=== PATIENT | female | born 1970 | race Caucasian/White ===

== ENCOUNTER 2018-09-25 21:50 | Emergency (ER) | payer MEDICAID, OTHER ==
[~2018-09-25] VITALS: Ht 172.7 cm; Wt 87.0 kg
[2018-09-25 22:02] VITALS: BP 169/87
[2018-09-25] MEDS ORDERED: dexamethasone sod phosphate 10mg/ml inj IM STA (22:04)
[2018-09-25] MEDS ORDERED: METH4TAB3 PO (22:05)
[2018-09-25] MEDS ORDERED: diphenhydrAMINE 25mg capsule PO ONE (22:05)
== END 2018-09-25 22:16 | disposition home or self-care (01) ==
LOC: ER 21:50
DX: T78.49XA Other allergy, initial encounter (principal); K08.89 Other specified disorders of teeth and supporting structures; K91.89 Other postprocedural complications and disorders of digestive system; K14.6 Glossodynia; Z91.040 Latex allergy status; X58.XXXA Exposure to other specified factors, initial encounter
CPT/HCPCS: 96372; 99283; J1100; Q0163

== ENCOUNTER 2018-09-29 14:04 | Emergency (ER) | payer MEDICAID ==
[~2018-09-29] VITALS: Ht 172.7 cm; Wt 81.8 kg
[~2018-09-29 14:04] MED LIST: METH4TAB3 PO
[2018-09-29] MEDS ORDERED: PRED10TA23 PO (15:49)
[2018-09-29 16:02] VITALS: BP 123/82
== END 2018-09-29 16:05 | disposition home or self-care (01) ==
LOC: ER 14:05
DX: R06.02 Shortness of breath (principal); R07.89 Other chest pain; K14.6 Glossodynia; Z13.89 Encounter for screening for other disorder; Z91.040 Latex allergy status; Z79.899 Other long term (current) drug therapy
CPT/HCPCS: 93005; 99283

== ENCOUNTER 2020-02-16 09:41 | Emergency (ER) | payer MEDICAID ==
[~2020-02-16] VITALS: Ht 172.7 cm; Wt 86.0 kg
[2020-02-16 10:21] LABS: BASOPHILS % (AUTO) 0.5 % (0-1); EOSINOPHILS # (AUTO) 0.1 X10'3 (0-0.9); EOSINOPHILS % (AUTO) 2.4 % (0-6); HEMATOCRIT 42.6 % (35.0-45.0); HEMOGLOBIN 14.9 g/dl (12.0-16.0); LYMPHOCYTES # (AUTO) 1.3 X10'3 (1.1-4.8); LYMPHOCYTES % (AUTO) 38.7 % (21-51); MEAN CORPUSCULAR HGB CONC 34.9 g/dL (33.0-36.5); MEAN CORPUSCULAR VOLUME 86.1 FL (78-98); MEAN PLATELET VOLUME 7.5 FL (7.4-10.4); MONOCYTES # (AUTO) 0.4 X10'3 (0-0.9); MONOCYTES % (AUTO) 11.8 % (2-12); NEUTROPHILS # (AUTO) 1.5 X10'3 (1.8-7.7); NEUTROPHILS % (AUTO) 46.6 % (42-75); PLATELET COUNT 143 X10'3 (140-440); RED BLOOD COUNT 4.95 X10'6 (4.20-5.60); RED CELL DISTRIBUTION WIDTH 13.1 % (11.5-14.5); WHITE BLOOD COUNT 3.3 X10'3 (4.5-11.0)
[2020-02-16 10:26] LABS: URINE HCG NEGATIVE (NEG)
[2020-02-16 10:29] LABS: CLARITY,URINE CLEAR (Clear); COLOR,URINE STRAW (Yellow); GLUCOSE, URINE NEGATIVE (Neg); KETONES,URINE NEGATIVE (Neg); LEUKOCYTE ESTERASE ,URINE NEGATIVE (Neg); NITRITES, URINE NEGATIVE (Neg); OCCULT BLOOD,URINE NEGATIVE (Neg); PROTEIN,URINE NEGATIVE (Neg); UROBILINOGEN,URINE 0.2 E.U/dL (0.2-1.0)
[2020-02-16 10:30] LABS: UA COLLECTION TYPE CLN CATCH MIDSTREAM
[2020-02-16] MEDS ORDERED: morphine 4 MG/ML inj SYRINge IV ONE (10:30)
[2020-02-16] MEDS ORDERED: ondansetron/PF 4mg/2ml inj IV ONE (10:30)
[2020-02-16] MEDS ORDERED: ketorolac tromethamine 15mg/ml inj. IV ONE (10:30)
[2020-02-16 10:35] LABS: ALANINE AMINOTRANSFERASE 216 U/L (12-78); ALBUMIN 4.1 G/DL (3.4-5.0); ALBUMIN/GLOBULIN RATIO 1.5 (1.1-1.5); ALKALINE PHOSPHATASE 114 IU/L (46-116); AMYLASE 51 U/L (25-115); ANION GAP 4 (8-16); ASPARTATE AMINO TRANSFERASE 96 U/L (10-37); BILIRUBIN,TOTAL 0.2 MG/DL (0.1-1.0); BLOOD UREA NITROGEN 12 MG/DL (7-18); BUN/CREATININE RATIO 12.9 (6.6-38.0); CHLORIDE 108 MMOL/L (99-107); CREATININE 0.93 MG/DL (0.40-0.90); GLUCOSE 119 MG/DL (70-104); LIPASE 139 U/L (73-393); POTASSIUM 3.7 MMOL/L (3.5-5.1); SODIUM 143 MMOL/L (135-145); TOTAL CARBON DIOXIDE 30.8 MMOL/L (24-32); TOTAL PROTEIN 6.9 G/DL (6.4-8.2); eGFR 64 ML/MIN
[2020-02-16 11:57] VITALS: BP 120/71
== END 2020-02-16 12:52 | disposition home or self-care (01) ==
LOC: ER 09:41
DX: R10.31 Right lower quadrant pain (principal); K21.9 Gastro-esophageal reflux disease without esophagitis; E78.00 Pure hypercholesterolemia, unspecified; Z90.710 Acquired absence of both cervix and uterus; Z91.040 Latex allergy status
CPT/HCPCS: 36415; 74176; 76700; 80053; 81003; 81025; 82150; 83690; 85025; 96374; 96375; 99285; J1885; J2270; J2405

== ENCOUNTER 2021-09-26 16:28 | Emergency (ER) | payer MEDICAID ==
[~2021-09-26] VITALS: Ht 172.7 cm; Wt 81.1 kg
[2021-09-26 16:50] VITALS: BP 126/95
[2021-09-26] MEDS ORDERED: TETanus/Pertussis (Acell)/Diphther VAC/PF (Tdap-Adult) 0.5ml syringe IMVAC ONE (18:05)
== END 2021-09-26 20:16 | disposition home or self-care (01) ==
LOC: ER 16:28
DX: S61.211A Laceration without foreign body of left index finger without damage to nail, initial encounter (principal); E78.00 Pure hypercholesterolemia, unspecified; K21.9 Gastro-esophageal reflux disease without esophagitis; Z90.710 Acquired absence of both cervix and uterus; Z79.899 Other long term (current) drug therapy; Z91.040 Latex allergy status; W26.0XXA Contact with knife, initial encounter; Y93.89 Activity, other specified; Y92.89 Other specified places as the place of occurrence of the external cause; Y99.8 Other external cause status
CPT/HCPCS: 12001; 73140; 99283